=== PATIENT | female | born 1935 | race Caucasian/White ===

== ENCOUNTER → 2019-01-03 | Outpatient (CLI) | payer MEDICARE, OTHER ==
[~2019-01-03] MED LIST: ASCO-182 PO; ASPI-1471 PO; ATOR40TA24 PO; CHOL10005 PO; FLU180SY11 IM; LISI5TAB25 PO; MELA1TAB24 PO; METO50TA19 PO; MULT-865 PO; NIT4 SL; VIT1CAPS9 PO
--- NOTE | 2019-01-03 17:39 | RADIOLOGY IMAGING REPORT ---
FACILITY: [facility] PATIENT NAME: Marietta Martinez : 1935 MR: [id number] V: [id number] EXAM DATE: ORDERING PHYSICIAN: RADHA SILVA TECHNOLOGIST: Location: Patient: Marietta Martinez : 1935 Visit/Account:[id number] Date of Sevice: 01/03/2019 DEXA Scan Clinical history: Postmenopausal. Comparison: DEXA scan from 05/06/2010. LUMBAR SPINE: The bone mineral density (BMD) measured from L1-L4 correlates with a Z-score of 1.7 and a T-score of -0.2 which is Normal as defined by the World Health Organization. The corresponding risk of fracture in the lumbar spine is Not increased compared with a young adult reference population. This value h as decrease by 1.3 % since the prior study. More than 5% change is considered significant. HIP: Bone mineral density (BMD) measured in the LEFT total hip region correlates with a Z-score 3.0 and a T-score of 0.7 which is normal as defined by the World Health Organization. The corresponding risk of fracture in the hip is Not i ncreased compared to a young adult reference population. This value has increased by 0.9 % since the prior study. More than 5% change is considered significant. T score left femoral neck -0.4 Bone mineral density (BMD) measured in the Femoral Neck region measures 0.988 g/cm?. IMPRESSION: 1. Lumbar spine: Normal. There has been 1.3% decrease in the bone mineral density since the previou s exam. 2. Left Total Hip: Normal. There has been 0.9% increase in the bone mineral density since the previ ous exam. 3. Femoral Neck: Bone Mineral Density is 0.988 g/cm? The next DEXA scan of this patient should include the following sites: L1-L4 and the left hip. FRAX? WHO Fracture Risk Assessment Tool link: <http://www.shef.ac.uk/FRAX/tool.jsp?locationValue=9> PLEASE NOTE: 1) The World Health Organization defines low BMD as follows: T-score Normal > -1 Osteopenia < -1 and > -2.5 Osteoporosis < -2.5 without fractures Established osteoporosis < -2.5 with fractures 2) In general, you may wish to consider: Diagnosis Treatment Follow-up DEXA Normal BMD Prevention 2-3 years Osteopenia Prevention/therapy 1-2 years Osteoporosis Therapy Yearly 3) Fracture risk estimated from the T-score is more accurate for vertebral fractures (often spontane ous) than for hip fractures. Report Dictated By: Ammy Juarez MD at 01/03/2019 4:28 PM Report E-Signed By: Ammy Juarez MD at 01/03/2019 5:34 PM WSN:[id number]
--- NOTE | 2019-01-04 15:18 | RADIOLOGY IMAGING REPORT ---
FAC[place] [facility] [place]IENT NAME: ANANDA MIN : [id number] MR: [id number] V: [id number] EXAM DATE: [id number] ORDERING PHYSICIAN: RADHA SILVA TECHNOLOGIST: Rachel Jaffe PROCEDURE: BILATERAL DIGITAL SCREENING MAMMOGRAM WITH CAD ASSISTED INTERPRETATION & 3D TOMOSYNTHESIS REASON FOR STUDY: Screening FAMILY HISTORY OF BREAST CANCER: Sister at age 73 & Maternal aunt BREAST PROCEDURES/TREATMENTS: None COMPARISON: 04/13/17, 08/16/13 VIEWS OBTAINED: Bilateral 2D & 3D full field CC & MLO projections BREAST DENSITY: There are scattered areas of fibroglandular density throughout the breasts. MAMMOGRAM FINDINGS: The parenchymal pattern has remained stable allowing for difference in mammographic technique & patient positioning. IMPRESSION: BIRADS 1: Negative. DIAGNOSTIC CATEGORY 1--NEGATIVE. RECOMMENDATIONS: ROUTINE MAMMOGRAM AND CLINICAL EVALUATION. Dictated by: Ammy Juarez M.D. on 01/03/2019 at 17:22 Transcribed by: AMY on 01/04/2019 at 10:56 Approved by: Ammy Jaurez M.D. on 01/04/2019 at 15:18 [facility]
== END ==
LOC: MAMO 01:24
PROVIDERS: ATTEND Family Medicine
DX: Z12.31 Encounter for screening mammogram for malignant neoplasm of breast (principal); Z78.0 Asymptomatic menopausal state
CPT/HCPCS: 77063; 77067; 77080